=== PATIENT | male | born 1990 | race Caucasian/White ===

== ENCOUNTER 2016-12-17 18:07 | Emergency (ER) | payer BC ==
[~2016-12-17] VITALS: Ht 180.3 cm; Wt 77.1 kg
[2016-12-17] MEDS ORDERED: Cephalexin 500mg cap ORAL ONE (18:45)
--- NOTE | 2016-12-17 18:51 | Emergency Room Report ---
History of Present Illness General Chief Complaint: Edema Source: Patient Present Illness HPI 26 YO Male presents to the ED c/o 11/23 in severity pain, swelling, and erythema of Right thigh s/p testosterone injection. pt. reports localized pain, with swelling that is not progressing down to the right knee. pt. denies fevers or chills. denies trauma or fall. denies knee pain with flexion or extensions. pt. is ambulatory and able to bear weight. pt. denies itching, blistering, or drainage. denies open lesions. Denies numbness tingling or loss of sensation or gross motor movements of the extremities, incontinence of bowel or bladder. Denies CP, Palpitations, LOC, AMS, dizziness, Changes in Vision, Sensation, paresthesias, or a sudden severe headache. Allergies: Coded Allergies: CETIRIZINE (Verified Allergy, Mild, Hives, 12/17/16) PREDNISONE (Verified Allergy, Mild, 12/17/16) depression Patient History Past Medical History: see triage record Past Surgical History: none Pertinent Family History: none Immunizations: UTD Reviewed Nursing Documentation: PMH: Agreed, PSxH: Agreed Nursing Documentation-PMH Past Medical History: No Stated History Review of Systems All Other Systems: negative except mentioned in HPI Physical Exam Vital Signs Date Time Temp Pulse Resp B/P Pulse Ox O2 Delivery O2 Flow Rate FiO2 12/17/16 18:10 98.1 63 18 131/70 97 Room Air Sp02 EP Interpretation: reviewed, normal General Appearance: no apparent distress, alert, GCS 15, non-toxic Head: normocephalic, atraumatic Eyes: bilateral eye PERRL, bilateral eye normal inspection ENT: hearing grossly normal, normal pharynx, no angioedema, normal voice Neck: full range of motion, supple/symm/no masses Respiratory: lungs clear, normal breath sounds, speaking full sentences Cardiovascular #1: regular rate, rhythm, no edema Rectal: deferred Genitourinary: normal inspection, no CVA tenderness Musculoskeletal: back normal, gait/station normal, normal range of motion, tender - TTP and erythema to the Right anterior thigh, mild swelling to the proximal knee, no erythema of the knee, increased temperature to palptaion only to the anterior thigh, non circumfrential, FROM Neurologic: alert, oriented x3, responsive, motor strength/tone normal, sensory intact, speech normal Psychiatric: judgement/insight normal, memory normal, mood/affect normal Skin: normal color, no rash, warm/dry, well hydrated, other - erythema, increased temperature to palpation, and tenderness to the distal anterior right thigh. mild swelling to the proximal knee, no appreciable increased temperature to palpation, erythema does not extend down into the knee. Lymphatic: no adenopathy Medical Decision Making PA Attestation Dr. White is my supervising Physician whom patient management has been discussed with. Diagnostic Impression: Primary Impression: Cellulitis and abscess of right leg ER Course 26 YO Male presents to the ED c/o 11/23 in severity pain, swelling, and erythema of Right thigh s/p testosterone injection. pt. reports localized pain, with swelling that is not progressing down to the right knee. pt. denies fevers or chills. denies trauma or fall. denies knee pain with flexion or extensions. pt. is ambulatory and able to bear weight. pt. denies itching, blistering, or drainage. denies open lesions. Denies numbness tingling or loss of sensation or gross motor movements of the extremities, incontinence of bowel or bladder. Denies CP, Palpitations, LOC, AMS, dizziness, Changes in Vision, Sensation, paresthesias, or a sudden severe headache. Ddx considered but are not limited to cellulitis, abscess, cystic acne, necrotizing fasciitis, insect bite. Vital signs: are WNL, pt. is afebrile H&PE are most consistent with Cellulitis s/p injection of foreign material non- rx. to right thigh. no evidence of septic joint at this time. pt. has FROM without pain in the knee, there is swelling noted. No palpable fluctuance to warrant I & D. ORDERS: none required at this time, the diagnosis is clinical ED INTERVENTIONS: - Keflex PO - Patel wrap applied to the right knee by copier field service technician. Pt. remains neurovascularly intact. -D/W pt. signs that would indicate knee joint involvement. d/w pt. to return promptly to the ED with worsening or new symptoms or concern that infection may have spread into the knee joint. d/w pt. to keep a close eye on his symptoms. d/w pt. to D/c injectable use, and not to use hormones unless prescribed by a medical professional. DISCHARGE: At this time pt. is stable for d/c to home. Will provide printed patient care instructions, and any necessary prescriptions. Care plan and follow up instructions have been discussed with the patient prior to discharge. Last Vital Signs Date Time Temp Pulse Resp B/P Pulse Ox O2 Delivery O2 Flow Rate FiO2 12/17/16 18:20 63 18 Room Air 12/17/16 18:10 98.1 131/70 97 Disposition: HOME, SELF-CARE Condition: Stable Scripts Trimethoprim/Sulfamethoxazole 160/800* (BACTRIM DS TABLET*) 1 Each Tablet 1 TAB ORAL TWICE A DAY for 7 Days, #14 TAB Prov: Tennille Carroll 12/17/16 Cephalexin* (KEFLEX*) 500 Mg Capsule 500 MG ORAL EVERY 12 HOURS for 7 Days, #14 CAP 0 Refills Prov: Tennille Carroll 12/17/16 Patient Instructions: Cellulitis Additional Instructions: Take medications as directed. Follow up with a Primary Care Provider in 3-5 days, even if your symptoms have resolved. --Please review list of primary care clinics, if you do not already have a primary care provider Return sooner to ED if new symptoms occur, or current symptoms become worse. d/c use of hormones unless rx'd and administered by a medical professional . - Please note that this Emergency Department Report was dictated using [employer] peddler technology software, occasionally this can lead to erroneous entry secondary to interpretation by the dictation equipment. Tennille Carroll Dec 17, 2016 18:51
[2016-12-17] MEDS ORDERED: CEPHALEXIN500 MG ORAL (18:52)
[2016-12-17] MEDS ORDERED: BACTRIM DS TAB1 EAC1 ORAL (18:52)
[2016-12-17 19:07] VITALS: BP 131/70
== END 2016-12-17 19:07 | disposition home or self-care (01) ==
LOC: EMR 19:00
DX: L03.115 Cellulitis of right lower limb (principal); L02.415 Cutaneous abscess of right lower limb; Z88.8 Allergy status to other drugs, medicaments and biological substances
CPT/HCPCS: 29530; 99284